=== PATIENT | male | born 1970 | race Caucasian/White ===

== ENCOUNTER 2021-04-25 14:08 | Emergency (ER) | payer OTHER ==
[2021-04-25 14:29] VITALS: BP 118/70; PULSE 78; TEMP 98.1; BMI 31.6
== END 2021-04-25 18:36 | disposition home or self-care (01) ==
LOC: JER 14:08
DX: S20.219A Contusion of unspecified front wall of thorax, initial encounter (principal); W11.XXXA Fall on and from ladder, initial encounter
CPT/HCPCS: 71111-TC-FY; 99283-25